=== PATIENT | female | born 1975 | race Caucasian/White ===

== ENCOUNTER → 2016-10-27 | Outpatient (CLI) | payer OTHER | LOC: FIMAGING 09:32 | DX: Z12.31 Encounter for screening mammogram for malignant neoplasm of breast (principal) | CPT/HCPCS: G0202 ==

== ENCOUNTER → 2017-11-09 | Outpatient (CLI) | payer OTHER | LOC: FIMAGING 14:45 | PROVIDERS: ATTEND Obstetrics & Gynecology | DX: Z12.31 Encounter for screening mammogram for malignant neoplasm of breast (principal) ==

== ENCOUNTER → 2017-11-22 | Outpatient (CLI) | payer OTHER | LOC: FIMAGING 12:47 | PROVIDERS: ATTEND Obstetrics & Gynecology | DX: R92.8 Other abnormal and inconclusive findings on diagnostic imaging of breast (principal) ==

== ENCOUNTER → 2018-05-09 | Outpatient (CLI) | payer OTHER | LOC: FIMAGING 09:46 | PROVIDERS: ATTEND Obstetrics & Gynecology | DX: N63.10 Unspecified lump in the right breast, unspecified quadrant (principal) ==

== ENCOUNTER → 2018-06-28 | Outpatient (CLI) | payer OTHER ==
[~2018-06-28] MED LIST: GADOBUTROL 10 ML VIAL IVP ONE
== END ==
LOC: FIMAGING 07:24
PROVIDERS: ATTEND Obstetrics & Gynecology
DX: R92.8 Other abnormal and inconclusive findings on diagnostic imaging of breast (principal); Z87.898 Personal history of other specified conditions
CPT/HCPCS: 0159T; 77059; A9585; C8908

== ENCOUNTER 2018-07-19 08:09 | Outpatient (CLI) | payer OTHER ==
[2018-07-19] MEDS ORDERED: fentaNYL 100 MCG/2 ML INJ IVP PRN (08:18)
[2018-07-19] MEDS ORDERED: FLUMAZENIL 0.5 MG/5 ML MDV IVP PRN (08:18)
[2018-07-19] MEDS ORDERED: MIDAZOLAM 2 MG/2 ML VIAL IVP PRN (08:18)
[2018-07-19] MEDS ORDERED: NALOXONE HCL 0.4 MG/ML INJ IVP PRN (08:18)
[2018-07-19] MEDS ORDERED: NS 1,000 ML IV SCH (08:30)
[2018-07-19] MEDS ORDERED: NA BICARBONATE 50 MEQ/50 ML VIAL ONE (08:59)
[2018-07-19] MEDS ORDERED: GADOBUTROL 10 ML VIAL IVP ONE (08:59)
[2018-07-19] MEDS ORDERED: BUPIVACAINE 0.5% 30 ML SDV ONE (08:59)
[2018-07-19] MEDS ORDERED: LIDOCAINE 1% 5 ML SDV ONE (09:00)
[2018-07-19 09:03] VITALS: BP 94/53
--- NOTE | 2018-07-19 09:31 | PDGENHP ---
History & Physical Chief Complaint: abnl breastMRI Cardiorespiratory Assessment: RRR, lungs clear
--- NOTE | 2018-07-19 09:32 | PDPROPOC ---
Sedation Plan of Care Sedation Plan of Care: vital signs stable, mental status noted, patient educated of risks, benefits, alternatives, patient can tolerate sedation ASA Classification: ASA 1 Planned drugs: fentanyl, midazolam Mallampati Score: Class 1 Mallampati Reference Image: Patient passed 3-3-2 rule?: Yes
[2018-07-19] MEDS ORDERED: FLUMAZENIL 0.5 MG/5 ML MDV IVP ONE (09:36)
[2018-07-19] MEDS ORDERED: MIDAZOLAM 2 MG/2 ML VIAL ONE (09:36)
[2018-07-19] MEDS ORDERED: NALOXONE HCL 0.4 MG/ML INJ ONE (09:37)
[2018-07-19] MEDS ORDERED: fentaNYL 100 MCG/2 ML INJ ONE (09:37)
[2018-07-19] MEDS ORDERED: ONDANSETRON 4 MG/2 ML VIAL IVP PRN (11:36)
[2018-07-19] MEDS ORDERED: ACETAMINOPHEN 325 MG TAB PO PRN (11:36)
== END 2018-07-19 11:40 | disposition home or self-care (01) ==
LOC: FIMAGING 08:09
PROVIDERS: ATTEND Obstetrics & Gynecology
PROC: 0HBT3ZX Excision of Right Breast, Percutaneous Approach, Diagnostic (ICD-10-PCS; principal; 2018-07-19)
DX: N60.11 Diffuse cystic mastopathy of right breast (principal)
CPT/HCPCS: A9585; J2250; J2310; J3010